=== PATIENT | male | born 1990 | race Caucasian/White ===

== ENCOUNTER 2017-05-22 21:59 | Emergency (ER) | payer BC, OTHER ==
[2017-05-22] MEDS ORDERED: Zofran 4 MG/2 ML VIAL IV ONE (22:38)
[2017-05-22] MEDS ORDERED: Sodium Chloride 0.9% 1000 ML 1,000 ML IV STA (22:38)
[2017-05-22] MEDS ORDERED: Hydromorphone 1 mg/ml Ampule IV ONE (22:40)
[2017-05-22] MEDS ORDERED: ROCEPHIN 2 Gm-D5w 50ML BAG** 2 G/50 ML IVPB IV STA (22:41)
--- NOTE | 2017-05-22 22:50 | ERPHSYRPT ---
- History of Present Illness Time Seen by Provider: 05/22/17 22:15 Source: patient Exam Limitations: clinical condition Patient Subjective Stated Complaint: Pain in foot, started out in toe and went to top of foot which made a large knot and has now went to the ankle Triage Nursing Assessment: Pt A&O x3, limping and gaurding right foot, complains that pain started in the big toe and radiated to the top of the foot and caused a knot and it has now went to the ankle, BP 181/125, lungs clear, pulses normal distal and proximal to the foot, stated that he doesn't recall injuring the forrt, doesn'. t appear to be in any other distress Physician History: PATIENT HAS A HISTORY OF HYPERTENSION, TAKES NO MEDICATIONS, AWAKENED FROM SLEEP YESTERDAY MORNING WITH PAIN IN HIS RIGHT FOOT ADJACENT TO HIS TOES, ASSOCIATED WITH SWELLING, AND MARKED PAIN UPON WEIGHT BEARING. DENIES FEVER, HISTORY OF TRAUMA OR INJURY. Method of Injury: other (DENIES INJURY OR TRAUMA) Occurred: yesterday Quality: constant, throbbing Severity of Pain-Max: severe Severity of Pain-Current: severe Lower Extremities Pain: foot: right Modifying Factors: Improves With: movement Associated Symptoms: unable to bear weight Allergies/Adverse Reactions: No Known Drug Allergies Allergy (Verified 05/22/17 22:16) Immunizations Up to Date: Yes - Review of Systems Constitutional: No Fever, No Chills Musculoskeletal: Joint Redness, Joint Pain, Joint Swelling Neurological: No Dizziness, No Focal Weakness, No Sensory Changes Psychological: No Symptoms - Past Medical History Pertinent Past Medical History: Yes Cardiac History: Hypertension - Past Surgical History Past Surgical History: No - Social History Smoking Status: Current some day smoker Exposure to second hand smoke: No Drug Use: none Patient Lives Alone: No - Nursing Vital Signs Nursing Vital Signs: Initial Vital Signs Temperature 98.9 F 05/22/17 22:04 Blood Pressure 181/125 05/22/17 22:04 Pain Scale Pain Intensity 4 - Physical Exam General Appearance: alert Foot Exam: right foot: pain, soft tissue tenderness (MARKED TENDERNESS MID TO DISTAL 2ND TO 3RD METATARSALS, WITH ERYTHEMA, MARKED TENDERNESS DORSUM 1ST TO 3RD METATARSAL PHALANGEAL JOINTS. PASSIVE RANGE OF MOTION DORSIFLEXION AND PLANTARFLEXION OF TOES WITH PAIN. RIGHT RADIAL PULSE 2+) Neuro/Tendon Exam: normal sensation, normal motor functions Mental Status Exam: alert, 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, cooperative Skin Exam: normal color, warm, dry SpO2 Interpretation: normal - Radiology Exams Right Foot X-ray Interpretation: Interpreted by me (SOFT TISSUE SWELLING, NEGATIVE FOR FRACTURE) Ordered Tests: Active Orders 24 hr Category Date Time Status Crutches STAT Care 05/22/17 23:52 Active FOOT (MINIMUM 3 VIEWS) Stat Exams 05/22/17 22:42 Taken BLOOD CULTURE Stat Lab 05/22/17 23:05 Received CBC W DIFF Stat Lab 05/22/17 22:55 Completed Uric Acid Stat Lab 05/22/17 22:55 Completed Medication Summary Generic Name Dose Route Start Last Admin Trade Name Freq PRN Reason Stop Dose Admin Sodium Chloride 1,000 mls @ 500 mls/hr 05/22/17 22:38 05/22/17 23:07 Sodium Chloride 0.9% 1000 Ml IV 05/23/17 00:37 500 mls/hr .Q2H STA Administration Discontinued Medications Generic Name Dose Route Start Last Admin Trade Name Freq PRN Reason Stop Dose Admin Hydrocodone Bitart/Acetaminophen 1 tab 05/22/17 23:51 05/23/17 00:03 [place] 10/325 Mg Tablet PO 05/22/17 23:52 1 tab STAT ONE Administration Hydrocodone Bitart/Acetaminophen Confirm 05/22/17 23:55 [place] 10/325 Mg Tablet Administered 05/22/17 23:56 Dose 1 tab .ROUTE .STK-MED ONE Hydromorphone HCl 1 mg 05/22/17 22:40 05/22/17 23:06 Hydromorphone 1 Mg/Ml Ampule IV 05/22/17 22:41 1 mg STAT ONE Administration Hydromorphone HCl Confirm 05/22/17 22:55 Dilaudid 2 Mg Injection Administered 05/22/17 22:56 Dose 2 mg .ROUTE .STK-MED ONE Ceftriaxone Sodium/Dextrose 2 g in 50 mls @ 100 mls/hr 05/22/17 22:41 23:07 Rocephin 2 Gm-D5w 50ml Bag IV 05/22/17 23:10 100 mls/hr STAT STA Administration Sodium Chloride Confirm 05/22/17 22:55 Sodium Chloride 0.9% 1000 Ml Administered 05/22/17 22:56 Dose 1,000 mls @ ud .ROUTE .STK-MED ONE Ceftriaxone Sodium/Dextrose Confirm 05/22/17 22:55 Rocephin 2 Gm-D5w 50ml Bag Administered 05/22/17 22:56 Dose 2 g in 50 mls @ ud IV .STK-MED ONE Indomethacin 50 mg 05/22/17 23:35 05/22/17 23:47 Indocin 25 Mg PO 05/22/17 23:36 50 mg STAT ONE Administration Indomethacin Confirm 05/22/17 23:47 Indocin 25 Mg Administered 05/22/17 23:48 Dose 50 mg .ROUTE .STK-MED ONE Lisinopril 10 mg 05/22/17 23:53 05/23/17 00:03 Zestril 10 Mg PO 05/22/17 23:54 10 mg STAT STA Administration Ondansetron HCl 4 mg 05/22/17 22:38 05/22/17 23:06 Zofran 4 Mg/2 Ml Vial IV 05/22/17 22:39 4 mg STAT ONE Administration Ondansetron HCl Confirm 05/22/17 22:54 Zofran 4 Mg/2 Ml Vial Administered 05/22/17 22:55 Dose 4 mg .ROUTE .STK-MED ONE Lab/Rad Data: Laboratory Result Diagrams 05/22/17 22:55 Laboratory Results 05/22/17 05/22/17 Range/Units 22:55 22:55 WBC 11.5 H (4.0-10.5) K/mm3 RBC 5.39 (4.1-5.6) M/mm3 Hgb 15.7 (12.5-18.0) gm/dl Hct 45.1 (42-50) % MCV 83.7 (78-100) fl MCH 29.1 (26-32) pg MCHC 34.8 (32-36) g/dl RDW 13.3 (11.5-14.0) % Plt Count 287 (150-450) K/mm3 MPV 10.3 H (6-9.5) fl Gran % 65.1 (36.0-66.0) % Eos # (Auto) 0.20 (0-0.5) Absolute Lymphs (auto) 3.02 (1.0-4.6) Absolute Monos (auto) 0.77 (0.0-1.3) Lymphocytes % 26.2 (24.0-44.0) % Monocytes % 6.7 (0.0-12.0) % Eosinophils % 1.7 (0.00-5.0) % Basophils % 0.3 (0.0-0.4) % Absolute Granulocytes 7.50 H (1.4-6.9) Basophils # 0.04 (0-0.4) Uric Acid 8.6 H (3.5-7.2) mg/dL - Progress Progress Note: 05/22/17 22:55 IV NORMAL SALINE 500ML/HR, ZOFRAN 4MG, DILAUDID 1MG, AFTER 2 SETS OF BLOOD CULTURES, ROCEPHIN 2GM IVPB, URIC ACID-8.6, ADMINISTERED INDOCIN 50MG ORALLY 05/22/17 23:39 Counseled pt/family regarding: lab results, diagnosis, need for follow-up, rad results - Departure Time of Disposition: 00:05 Departure Disposition: Home Clinical Impression: RIGHT FOOT GOUTY ARTHRITIS Condition: Stable Critical Care Time: No Referrals: JESSEE NAZARIO [Primary Care Provider] - Additional Instructions: AMBULATE USING CRUTCHES NONWEIGHT BEARING RIGHT FOOT X 7 DAYS. INDOCIN 25MG EVERY 8 HOURS FOR 1 WEEK. NORCO 10/325 EVERY 4 HOURS FOR PAIN NEEDED. LISINOPRIL 10MG DAILY FOR 4 WEEKS. CONSULT YOUR PRIMARY CARE PROVIDER FOR FOLLOWUP. Prescriptions: Hydrocodone/APAP 10/325 mg [[place] 10/325 MG Tablet] 1 tab PO Q4H PRN PRN # 10 tablet MDD 4 PRN Reason: Pain Indomethacin 25 mg [Indocin 25 MG] 25 mg PO TID #21 capsule Lisinopril 10 mg [Zestril 10 MG] 10 mg PO DAILY #30 tablet
[2017-05-22] MEDS ORDERED: Zofran 4 MG/2 ML VIAL ONE (22:54)
[2017-05-22] MEDS ORDERED: ROCEPHIN 2 Gm-D5w 50ML BAG** 2 G/50 ML IVPB IV ONE (22:55)
[2017-05-22] MEDS ORDERED: DILAUDID 2 MG INJECTION ONE (22:55)
[2017-05-22] MEDS ORDERED: Sodium Chloride 0.9% 1000 ML 1,000 ML ONE (22:55)
[2017-05-22 23:10] LABS: BASOPHIL % 0.3 % (0.0-0.4); Basophil (Absolute #) 0.04 (0-0.4); Eosinophil % 1.7 % (0.00-5.0); Granulocytes % 65.1 % (36.0-66.0); Hematocrit 45.1 % (42-50); Hemoglobin 15.7 gm/dl (12.5-18.0); Lymphocyte (Absolute #) 3.02 (1.0-4.6); Lymphocytes % 26.2 % (24.0-44.0); Mean Cell Volume 83.7 fl (78-100); Mean Corpuscular Hemoglobin 29.1 pg (26-32); Mean Corpuscular Hgb Concent. 34.8 g/dl (32-36); Mean Platelet Volume 10.3 fl (6-9.5); Monocyte (Absolute #) 0.77 (0.0-1.3); Monocytes % 6.7 % (0.0-12.0); Platelet Count 287 K/mm3 (150-450); Red Blood Count 5.39 M/mm3 (4.1-5.6); Red Cell Distribution Width 13.3 % (11.5-14.0); White Blood Count 11.5 K/mm3 (4.0-10.5)
[2017-05-22] MEDS ORDERED: Indocin 25 MG PO ONE (23:35)
[2017-05-22 23:45] VITALS: BP 167/122
[2017-05-22] MEDS ORDERED: Indocin 25 MG ONE (23:47)
[2017-05-22] MEDS ORDERED: Norco 10/325 MG Tablet PO ONE (23:51)
[2017-05-22] MEDS ORDERED: Zestril 10 MG PO STA (23:53)
[2017-05-22] MEDS ORDERED: Norco 10/325 MG Tablet ONE (23:55)
--- NOTE | 2017-05-23 08:57 | XRAY ---
Indication: Foot pain and edema. No known injury. Comparison: December 26, 2011. 3 nonweightbearing views of the right foot demonstrates stable cuboid accessory ossicle and tiny posterior heel spur with now minimal forefoot soft tissue swelling. No other bony, articular, or soft tissue abnormalities.
== END 2017-05-23 00:17 | disposition home or self-care (01) ==
LOC: ED 21:59
DX: M10.9 Gout, unspecified (principal); M79.671 Pain in right foot
CPT/HCPCS: 36000; 36415; 73630; 84550; 85025; 87040; 96360; 96361; 96365; 96374; 96375; 99284; J0696; J1170; J2405; A9270-GY

== ENCOUNTER 2017-12-13 14:18 | Emergency (ER) | payer OTHER ==
[2017-12-13] MEDS ORDERED: Sodium Chloride 0.9% 1000 ML 1,000 ML IV SCH (15:00)
[2017-12-13] MEDS ORDERED: LOPRESSOR 5 MG/5 ML INJECTION IV ONE ×2 (15:01→15:21)
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
[2017-12-13] MEDS ORDERED: Sodium Chloride 0.9% 1000 ML 1,000 ML ONE (15:21)
[2017-12-13 15:24] LABS: BASOPHIL % 0.5 % (0.0-0.4); Basophil (Absolute #) 0.06 (0-0.4); Eosinophil % 1.4 % (0.00-5.0); Eosinophil (Absolute #) 0.15 (0-0.5); Granulocyte Absolute (ANC) 7.51 (1.4-6.9); Granulocytes % 68.3 % (36.0-66.0); Hematocrit 47.7 % (42-50); Hemoglobin 16.4 gm/dl (12.5-18.0); Lymphocyte (Absolute #) 2.75 (1.0-4.6); Mean Cell Volume 84.1 fl (78-100); Mean Corpuscular Hemoglobin 28.9 pg (26-32); Mean Corpuscular Hgb Concent. 34.4 g/dl (32-36); Mean Platelet Volume 10.6 fl (6-9.5); Monocyte (Absolute #) 0.53 (0.0-1.3); Monocytes % 4.8 % (0.0-12.0); Platelet Count 290 K/mm3 (150-450); Red Blood Count 5.67 M/mm3 (4.1-5.6); Red Cell Distribution Width 13.8 % (11.5-14.0)
--- NOTE | 2017-12-13 15:43 | XRAY ---
Indication: Chronic headache, dizziness, and intermittent visual disturbance. Multiple contiguous axial images obtained through the head without contrast. Comparison: None Normal appearing brain parenchyma, ventricles, and bony calvarium. Visualized paranasal sinuses and mastoid air cells are clear. Impression: Normal CT head without contrast exam. CT DI 68.15
[2017-12-13 15:44] LABS: ANION GAP 16.3 MEQ/L (5-15); BLOOD UREA NITROGEN 14 mg/dL (9-20); CHLORIDE 101 mmol/L (98-107); Calcium 9.3 mg/dL (8.4-10.2); Carbon Dioxide 27 mmol/L (22-30); Creatinine 1 0.85 mg/dL (0.66-1.25); Glucose 114 mg/dL (74-106); Potassium 3.9 mmol/L (3.5-5.1); SODIUM 140 mmol/L (137-145)
[2017-12-13] MEDS ORDERED: ANTIVERT 25 MG PO ONE (16:04)
[2017-12-13] MEDS ORDERED: ANTIVERT 25 MG ONE (16:07)
[2017-12-13 16:54] VITALS: BP 120/84; PULSE 97
[2017-12-13 17:36] VITALS: O2SAT 97
== END 2017-12-13 17:49 | disposition home or self-care (01) ==
LOC: ED 14:18
DX: I10 Essential (primary) hypertension (principal); R42 Dizziness and giddiness; R51 Headache; Z79.899 Other long term (current) drug therapy
CPT/HCPCS: 36000; 36415; 70450; 80048; 85025; 93041; 96360; 96361; 96374; 99284; A9270-GY